=== PATIENT | female | born 1930 | race Caucasian/White ===

== ENCOUNTER 2016-06-11 13:14 | Inpatient (IN) | payer MEDICARE, OTHER ==
[~2016-06-11] VITALS: Ht 170.2 cm; Wt 86.2 kg
[~2016-06-11 13:14] MED LIST: ASPIR 8181 MG PO; CASCARA SAGRADA1 ML PO; CYMBALTA30 MG PO; ELIQUIS 2.5 MG2.5 MG PO; ERYTHROMYCIN250 M1 PO; GLUCOTROL 10 MG10 MG PO; LEVAQUIN500 MG PO; LEVOTHYROXINE25 MCG PO; LIPITOR TAB 2020 MG PO; LORTAB 5-325 M1 EACH PO; MAGNESIUM400 MG PO; MIRALAX17 GM PO; MIRTAZAPINE30 M1 PO; NITROSTAT0.4 MG SL; OMEGA 3 FISH O1 EACH PO; PANTOPRAZOLE SO40 MG PO; POTASSIUM CHLO10 MEQ PO; PROVENTIL HFA 61 INH INH; RANEXA500 MG PO; SECTRAL CAP 20200 MG PO; TYLENOL 325MG325 MG PO; VICTOZA 3-0.6 MG/0.1 SQ; VITAMIN D 40400 UNIT PO; ZYLOPRIM 100 M100 MG PO
[2016-06-11 15:19] LABS: HEMOGLOBIN 13.1 gm/dl (12.3-15.3); RED BLOOD COUNT 4.36 M/UL (4.00-5.10); WHITE BLOOD COUNT 12.4 K/UL (4.5-11.0)
[2016-06-12] MEDS ORDERED: NORCO 10-325 T1 EACH PO (00:27)
[2016-06-12] MEDS ORDERED: VITAMIN D3400 UNIT PO (00:27)
[2016-06-12] MEDS ORDERED: LEVEMIR100 UNIT/1 SQ (00:29)
[2016-06-12] MEDS ORDERED: BONINE25 MG PO (00:31)
[2016-06-12] MEDS ORDERED: HUMULIN R100 UNIT/1 INJ (00:31)
[2016-06-12] MEDS ORDERED: REMERON15 MG PO (00:32)
[2016-06-12] MEDS ORDERED: STARLIX 120 MG120 MG PO (00:32)
[2016-06-12] MEDS ORDERED: PROTONIX40 MG PO (00:33)
[2016-06-12 04:30] LABS: HEMOGLOBIN 11.8 gm/dl (12.3-15.3)
[2016-06-12 07:07] LABS: HEMOGLOBIN 12.5 gm/dl (12.3-15.3); RED BLOOD COUNT 4.16 M/UL (4.00-5.10)
[2016-06-13 04:29] LABS: HEMOGLOBIN 11.5 gm/dl (12.3-15.3); RED BLOOD COUNT 3.8 M/UL (4.00-5.10)
[2016-06-13 04:33] LABS: WHITE BLOOD COUNT 9.2 K/UL (4.5-11.0)
[2016-06-14] MEDS ORDERED: ELIQUIS 2.5 MG2.5 MG PO (13:10)
[2016-06-14] MEDS ORDERED: PLAVIX 75 MG TA75 MG PO (13:14)
[2016-06-14] MEDS ORDERED: ZESTRIL2.5 MG PO (13:15)
[2016-06-14] MEDS ORDERED: LOPRESSOR 25 MG25 MG PO (13:17)
[2016-06-14] MEDS ORDERED: NITROSTAT 0.40.4 MG SL (13:21)
[2016-06-14] MEDS ORDERED: ZOVIRAX 5% CREAM5 GM TOP (13:23)
[2016-12-27] MEDS ORDERED: NOVOLOG100 UNIT/1 SQ (12:59)
[2016-12-27] MEDS ORDERED: MAGNESIUM400 MG PO (13:00)
[2016-12-27] MEDS ORDERED: SINGULAIR10 MG PO (13:00)
[2016-12-27] MEDS ORDERED: ISOSORBIDE MONO30 MG PO (13:01)
[2016-12-27] MEDS ORDERED: LEVAQUIN250 MG PO (16:40)
== END 2016-06-14 14:40 | disposition home or self-care (01) | DRG 247 ==
LOC: ER1 13:14 → M/S 16:48 → ZEROF 16:48 → M/S 21:23 → CCU 06-12 11:52
PROVIDERS: Emergency Medicine; Internal Medicine; Internal Medicine Cardiovascular Disease; ADMIT Emergency Medicine
PROC: 027035Z Dilation of Coronary Artery, One Artery with Two Drug-eluting Intraluminal Devices, Percutaneous Approach (ICD-10-PCS; principal; 2016-06-12)
DX: I21.19 ST elevation (STEMI) myocardial infarction involving other coronary artery of inferior wall (principal); I47.2 Ventricular tachycardia; I48.91 Unspecified atrial fibrillation; I95.9 Hypotension, unspecified; I12.9 Hypertensive chronic kidney disease with stage 1 through stage 4 chronic kidney disease, or unspecified chronic kidney disease; N18.3 Chronic kidney disease, stage 3 (moderate); B00.1 Herpesviral vesicular dermatitis; R55 Syncope and collapse; I49.5 Sick sinus syndrome; I25.10 Atherosclerotic heart disease of native coronary artery without angina pectoris; F32.9 Major depressive disorder, single episode, unspecified; F41.9 Anxiety disorder, unspecified; E66.9 Obesity, unspecified; Z95.5 Presence of coronary angioplasty implant and graft; E03.9 Hypothyroidism, unspecified; E11.65 Type 2 diabetes mellitus with hyperglycemia; E78.5 Hyperlipidemia, unspecified; Z91.81 History of falling; R26.0 Ataxic gait; Z68.27 Body mass index [BMI] 27.0-27.9, adult; Z96.651 Presence of right artificial knee joint; I25.2 Old myocardial infarction; Z88.0 Allergy status to penicillin; Z88.2 Allergy status to sulfonamides; Z88.5 Allergy status to narcotic agent; Z88.8 Allergy status to other drugs, medicaments and biological substances; Z79.82 Long term (current) use of aspirin; Z79.4 Long term (current) use of insulin; Z79.891 Long term (current) use of opiate analgesic; Z79.899 Other long term (current) drug therapy; Z81.8 Family history of other mental and behavioral disorders; Z83.3 Family history of diabetes mellitus; Z84.89 Family history of other specified conditions; Z82.1 Family history of blindness and visual loss; Z87.891 Personal history of nicotine dependence
CPT/HCPCS: ECHO; 36415; 71020; 80048; 80053; 81001; 82150; 82550; 82553; 82962; 83690; 83735; 83880; 84439; 84443; 84450; 84460; 84484; 85025; 85347; 85610; 85730; 87086; 93005; 93306; 99285; C1725; C1769; C1874; C1887; C9600; G0378; J0461; J0583; J1644; J2001; J2250; J2550; J3010; J7030; J7040; J7050; Q9965

== ENCOUNTER → 2016-07-18 | Outpatient (CLI) | payer MEDICARE, OTHER ==
[~2016-07-18] MED LIST changes: +BONINE25 MG PO; +HUMULIN R100 UNIT/1 INJ; +ISOSORBIDE MONO30 MG PO; +LEVAQUIN250 MG PO; +LEVEMIR100 UNIT/1 SQ; +LOPRESSOR 25 MG25 MG PO; +NITROSTAT 0.40.4 MG SL; +NORCO 10-325 T1 EACH PO; +NOVOLOG100 UNIT/1 SQ; +PLAVIX 75 MG TA75 MG PO; +PROTONIX40 MG PO; +REMERON15 MG PO; +SINGULAIR10 MG PO; +STARLIX 120 MG120 MG PO; +VITAMIN D3400 UNIT PO; +ZESTRIL2.5 MG PO; +ZOVIRAX 5% CREAM5 GM TOP
== END ==
LOC: HEART 5 13:26
DX: J44.9 Chronic obstructive pulmonary disease, unspecified (principal); F17.210 Nicotine dependence, cigarettes, uncomplicated
CPT/HCPCS: 94010

== ENCOUNTER 2021-02-22 17:35 | Observation (INO) | payer MEDICARE, OTHER ==
[~2021-02-22] VITALS: Ht 172.7 cm; Wt 90.7 kg
[~2021-02-22 17:35] MED LIST changes: -BONINE25 MG PO; +BUMETANIDE1 MG PO; +CEFUROXIME500 MG PO; +COREG 3.125M3.125 MG PO; +DIAMOX 250 MG250 MG PO; +ERYTHROMYCIN250 MG PO; +FISH OIL 1,0001 EAC1 PO; +HYDROCODON-ACE1 EAC2 PO; +IPRAT-ALBUT 0.5-3 ML NEB; +LANTUS100 UNIT/1 SQ; -LIPITOR TAB 2020 MG PO; +LIPITOR40 MG PO; +MOTION SICKNESS25 M3 PO; +MULTI-VITAMIN1 EACH PO; -NORCO 10-325 T1 EACH PO; +SENNA LAX8.6 MG PO; +TRADJENTA5 MG PO; +VITAMIN D325 MC6 PO; -VITAMIN D3400 UNIT PO; +ZOFRAN4 MG PO
[2021-02-22] MEDS ORDERED: PROAIR DIGIHAL90 MCG INH (19:15)
[2021-02-22] MEDS ORDERED: DOXYCYCLINE MO100 MG PO (19:20)
[2021-02-22] MEDS ORDERED: UREX1 GM PO (19:22)
[2021-02-22] MEDS ORDERED: MYCOSTATIN100000 UTS PO (19:29)
[2021-02-22] MEDS ORDERED: INSULIN LI100 UNIT/2 SQ (19:29)
[2021-02-22] MEDS ORDERED: BREO ELLIPTA 11 EACH INH (19:30)
[2021-02-22] MEDS ORDERED: FERROUS SULFAT325 MG PO (19:31)
[2021-02-22] MEDS ORDERED: BUMETANIDE1 MG PO (19:32)
[2021-02-22] MEDS ORDERED: COLCHICINE0.6 MG PO (19:33)
[2021-02-22] MEDS ORDERED: VOLTAREN ARTHRI20 GM TP (19:35)
[2021-02-22] MEDS ORDERED: COLACE100 MG PO (19:57)
[2021-02-23 05:12] LABS: HEMOGLOBIN 13.3 gm/dl (12.3-15.3); RED BLOOD COUNT 4.6 M/UL (4.00-5.10); WHITE BLOOD COUNT 13.9 K/UL (4.5-11.0)
--- NOTE | 2021-02-23 17:39 | NUR ---
1715 CONSULT CALLED TO HEM/ONC
[2021-02-24 04:30] LABS: HEMOGLOBIN 12.7 gm/dl (12.3-15.3); RED BLOOD COUNT 4.42 M/UL (4.00-5.10)
--- NOTE | 2021-02-24 16:18 | NUR ---
CONSULT TO DR Tatiana BAXTER.
[2021-02-25 03:09] LABS: HEMOGLOBIN 12.2 gm/dl (12.3-15.3); RED BLOOD COUNT 4.07 M/UL (4.00-5.10); WHITE BLOOD COUNT 11.1 K/UL (4.5-11.0)
[2021-02-26] MEDS ORDERED: OMNICEF 300 MG300 MG PO (09:31)
[2021-02-26] MEDS ORDERED: AZITHROMYCIN250 MG PO (09:31)
[2021-02-26] MEDS ORDERED: BUMETANIDE1 MG PO (09:31)
[2021-02-26] MEDS ORDERED: IPRAT-ALBUT 0.5-3 ML NEB (09:31)
[2021-02-26] MEDS ORDERED: DIAMOX 250 MG250 MG PO (09:31)
== END 2021-02-26 09:28 | disposition home or self-care (01) ==
LOC: PROG CARE 17:35
PROVIDERS: ADMIT Internal Medicine
DX: J96.01 Acute respiratory failure with hypoxia (principal); U09.9 Post COVID-19 condition, unspecified; N17.9 Acute kidney failure, unspecified; I48.20 Chronic atrial fibrillation, unspecified; E03.9 Hypothyroidism, unspecified; D63.1 Anemia in chronic kidney disease; I25.10 Atherosclerotic heart disease of native coronary artery without angina pectoris; G47.33 Obstructive sleep apnea (adult) (pediatric); F41.9 Anxiety disorder, unspecified; F32.A Depression, unspecified; Z79.01 Long term (current) use of anticoagulants; E11.22 Type 2 diabetes mellitus with diabetic chronic kidney disease; Z79.82 Long term (current) use of aspirin; Z79.4 Long term (current) use of insulin; E11.43 Type 2 diabetes mellitus with diabetic autonomic (poly)neuropathy; Z98.51 Tubal ligation status; Z88.5 Allergy status to narcotic agent; E11.65 Type 2 diabetes mellitus with hyperglycemia; N18.9 Chronic kidney disease, unspecified; D72.829 Elevated white blood cell count, unspecified; R53.81 Other malaise; R79.1 Abnormal coagulation profile; Z88.8 Allergy status to other drugs, medicaments and biological substances; J12.9 Viral pneumonia, unspecified
CPT/HCPCS: 36415; 71045; 71250; 78580; 80053; 81001; 82550; 82553; 82565; 82728; 82962; 83036; 83540; 83550; 83735; 84439; 84443; 84484; 85027; 85379; 87040; 87077; 87086; 87186; 93970; 94640; 94664; 94760; 97116-GP-CQ; 97161; 97530-GP-CQ; A9540; G0378; G0379; J0456; J0696; J1650; J7030

== ENCOUNTER → 2021-02-28 | Outpatient (CLI) | payer MEDICARE, OTHER ==
[~2021-02-28] MED LIST changes: +AZITHROMYCIN250 MG PO; +BREO ELLIPTA 11 EACH INH; +COLACE100 MG PO; +COLCHICINE0.6 MG PO; +DOXYCYCLINE MO100 MG PO; +FERROUS SULFAT325 MG PO; +INSULIN LI100 UNIT/2 SQ; +MYCOSTATIN100000 UTS PO; +OMNICEF 300 MG300 MG PO; +PROAIR DIGIHAL90 MCG INH; +UREX1 GM PO; +VOLTAREN ARTHRI20 GM TP
--- NOTE | 2021-02-28 15:48 | NUR ---
DR. GIBBONS AND PATIENT FAMILY MADE AWARE OF CRITICAL LAB VALUES, RECOMMENDED PT GO TO AN URGENT CARE OR ER FOR ELEVATED K LEVEL AND ELEVATED GLUCOSE, FAMILY AGREED WOULD TAKE PT TO ER
== END ==
LOC: LAB 12:19
PROVIDERS: Internal Medicine
DX: Z51.81 Encounter for therapeutic drug level monitoring (principal); Z79.01 Long term (current) use of anticoagulants; Z79.899 Other long term (current) drug therapy
CPT/HCPCS: 36415; 80048